=== PATIENT | female | born 1960 | race American Indian/Alaskan Native ===

== ENCOUNTER 2020-08-11 20:46 | Emergency (ER) | payer MEDICAID, OTHER ==
[2020-08-11] MEDS ORDERED: Sodium Chloride 0.9% 10 ML Syringe FLUSH PRN (21:02)
[2020-08-11] MEDS ORDERED: Sodium Chloride 0.9% 2.5 ML Syringe FLUSH PRN (21:02)
[2020-08-11] MEDS ORDERED: Aspirin 81 MG Tab.Chew PO ONE (21:04)
--- NOTE | 2020-08-11 21:05 | EDM.PDOC ---
ED HPI GENERAL MEDICAL PROBLEM - General Stated Complaint: MEDICAL CLEARANCE Time Seen by Provider: 08/11/20 20:49 - History of Present Illness INITIAL COMMENTS - FREE TEXT/NARRATIVE: History of present illness: [] This diabetic who quit smoking less than a year ago says she was in [employer] shopping and she got exertional dyspnea and pressure in the center of her chest. It went away when she relaxed. She went out to eat but they did not get there now she comes in under police custody because she is under arrest. The patient rarely or never has any significant pressure in her chest or shortness of breath. She was exposed to someone 9 days ago who had COVID-19. The patient has a little cough no fever and chills and no dyspnea at rest. The pressure was in the center of her chest when it happened and lasted until she got to the car rested. Review of systems: As per history of present illness and below otherwise all systems reviewed and negative. Past medical history: As per history of present illness and as reviewed below otherwise no ncontributory. Surgical history: As per history of present illness and as reviewed below otherwise noncontributory. Social history: No reported history of drug or alcohol abuse. Family history: As per history of present illness and as reviewed below otherwise noncontributory. Physical exam: Constitutional -obese-BMI 33.3 - well developed, well-nourished and in no acute distress HEENT - normocephalic, no evidence of trauma - external nose and mouth normal - no mass in neck and no JVD - mucosae moist EYES - full EOM, PERRL, no icterus - no evidence of inflammation, injection, or drainage Respiratory - no respiratory distress, equal bilateral expansion, lungs clear to auscultation and no abnormal lung sounds Cardiovascular - Regular Rhythm with S1 and S2 appreciated and no murmur, gallop or rub. GI - abdomen soft without distension or organomegaly - normal bowel sounds - no guard or rebound Musculoskeletal no gross deformity of long bones or joints - no tenderness, swelling or edema Neurologic - Alert and oriented times four - CN II-XII grossly intact - motor sensory and coordination symmetrically normal Psychiatric - appropriate mood and affect with normal thought content Hematologic - No petechiae or purpura - mucosa appropriate color and sclera not pale - normal nail bed color and refill Integument - no rash or evidence of trauma - normal turgor Diagnostics: [] Therapeutics: [] Impression: [] Plan: [] Definitive disposition and diagnosis as appropriate pending reevaluation and review of above. Chest Pain Score (Numeric/FACES): 4 - Related Data Allergies Allergy/AdvReac Type Severity Reaction Status Date / Time hydrocodone Allergy Shaking Verified 08/11/20 21:06 NSAIDS (Non-Steroidal Allergy Stomach Verified 08/11/20 21:06 Anti-Inflamma Upset tramadol Allergy Nausea and Verified 08/11/20 21:06 Vomiting Home Meds: Home Meds Losartan [Cozaar] 50 mg PO DAILY 12/22/15 [History] Simvastatin [Zocor] 20 mg PO DAILY 12/22/15 [History] metFORMIN [Glucophage] 2,000 mg PO DAILY 12/22/15 [History] Insulin Detemir [Levemir] 45 units SQ DAILY 12/23/15 [History] Aspirin [[place] Aspirin EC] 81 mg PO DAILY 10/28/16 [History] Pantoprazole Sodium 40 mg PO DAILY 10/28/16 [History] Sucralfate 1 gm PO TID 10/28/16 [History] Past Medical History HEENT History: Reports: Other (See Below) Other HEENT History: wears glasses Cardiovascular History: Reports: High Cholesterol, Hypertension, Other (See Below) Respiratory History: Reports: Other (See Below) Gastrointestinal History: Reports: GERD (controlled with medication.), Hepatitis Other Gastrointestinal History: states hepatitis as a child and was treated Genitourinary History: Reports: None 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: Musculoskeletal History: Reports: None Neurological History: Reports: TIA (January 2016.) Endocrine/Metabolic History: Reports: Diabetes, Type II, Obesity/BMI 30+ Hematologic History: Reports: None - Infectious Disease History Infectious Disease History: Reports: Chicken Pox - Past Surgical History HEENT Surgical History: Reports: Oral Surgery, Other (See Below) Cardiovascular Surgical History: Reports: Other (See Below) Female Surgical History: Reports: Tubal Ligation - History Comment History Comment: etoh "rare" Social & Family History - Family History Family Medical History: No Pertinent Family History - Caffeine Use Caffeine Use: Reports: Coffee - Living Situation & Occupation Occupation: Unemployed ED ROS GENERAL - Review of Systems Review Of Systems: Comprehensive ROS is negative, except as noted in HPI. ED EXAM, GENERAL - Physical Exam Exam: See Below Free Text/Narrative:: My physical exam is in the HPI #1 Interpretation EKG Interpretation Comments: KG done at 9:18 PM 11 August 2020 and interpreted at 9:22 PM. Normal sinus rhythm heart rate 66 and axis of -14. WI interval 170 QT duration 432. Normal QRS ST and T. Compared to 10/18/2016 no change impression normal EKG Course - Vital Signs Last Recorded V/S: Last Vital Signs Temp 36.7 C 08/11/20 21:01 Pulse 70 08/11/20 21:01 Resp 20 08/11/20 21:01 BP 154/59 H 08/11/20 21:01 Pulse Ox 98 08/11/20 21:01 - Orders/Labs/Meds Orders: Active Orders 24 hr Category Date Time Status EKG Documentation Completion [RC] AM Care 08/11/20 21:02 Active CORONAVIRUS COVID-19 PCR PHL Stat Lab 08/11/20 21:33 Received Labs: Laboratory Tests 08/11/20 08/11/20 08/11/20 Range/Units 21:33 21:54 21:54 WBC 10.13 (4.0-11.0) K/uL RBC 3.29 L (4.30-5.90) M/uL Hgb 9.8 L (12.0-16.0) g/dL Hct 30.3 L (36.0-46.0) % MCV 92.1 (80.0-98.0) fL MCH 29.8 (27.0-32.0) pg MCHC 32.3 (31.0-37.0) g/dL RDW Std Deviation 42.0 (28.0-62.0) fl RDW Coeff of Tatiana 12 (11.0-15.0) % Plt Count 302 (150-400) K/uL MPV 10.70 (7.40-12.00) fL Neut % (Auto) 67.6 (48.0-80.0) % Lymph % (Auto) 25.7 (16.0-40.0) % [place] % (Auto) 5.1 (0.0-15.0) % Eos % (Auto) 1.2 (0.0-7.0) % Baso % (Auto) 0.4 (0.0-1.5) % Neut # (Auto) 6.9 H (1.4-5.7) K/uL Lymph # (Auto) 2.6 H (0.6-2.4) K/uL [place] # (Auto) 0.5 (0.0-0.8) K/uL Eos # (Auto) 0.1 (0.0-0.7) K/uL Baso # (Auto) 0.0 (0.0-0.1) K/uL Nucleated RBC % 0.0 /100WBC Nucleated RBCs # 0 K/uL Sodium 141 (136-145) mmol/L Potassium 5.7 H (3.5-5.1) mmol/L Chloride 107 (98-107) mmol/L Carbon Dioxide 21.4 (21.0-32.0) mmol/L BUN 27 H (7.0-18.0) mg/dL Creatinine 1.8 H (0.6-1.0) mg/dL Est Cr Clr Drug Dosing 30.28 mL/min Estimated GFR (MDRD) 28.8 ml/min Glucose 194 H (74-106) mg/dL Calcium 9.0 (8.5-10.1) mg/dL Total Bilirubin 0.4 (0.2-1.0) mg/dL AST 11 L (15-37) IU/L ALT 14 (14-63) IU/L Alkaline Phosphatase 160 H (46-116) U/L Troponin I < 0.050 (0.000-0.056) ng/mL Total Protein 7.9 (6.4-8.2) g/dL Albumin 3.3 L (3.4-5.0) g/dL Globulin 4.6 H (2.6-4.0) g/dL Albumin/Globulin Ratio 0.7 L (0.9-1.6) SARS CoV-2 RNA Rapid JOHN NEGATIVE (NEGATIVE) 08/11/20 Range/Units 22:48 WBC (4.0-11.0) K/uL RBC (4.30-5.90) M/uL Hgb (12.0-16.0) g/dL Hct (36.0-46.0) % MCV (80.0-98.0) fL MCH (27.0-32.0) pg MCHC (31.0-37.0) g/dL RDW Std Deviation (28.0-62.0) fl RDW Coeff of Tatiana (11.0-15.0) % Plt Count (150-400) K/uL MPV (7.40-12.00) fL Neut % (Auto) (48.0-80.0) % Lymph % (Auto) (16.0-40.0) % [place] % (Auto) (0.0-15.0) % Eos % (Auto) (0.0-7.0) % Baso % (Auto) (0.0-1.5) % Neut # (Auto) (1.4-5.7) K/uL Lymph # (Auto) (0.6-2.4) K/uL Living[place] # (Auto) (0.0-0.8) K/uL Eos # (Auto) (0.0-0.7) K/uL Baso # (Auto) (0.0-0.1) K/uL Nucleated RBC % /100WBC Nucleated RBCs # K/uL Sodium (136-145) mmol/L Potassium (3.5-5.1) mmol/L Chloride (98-107) mmol/L Carbon Dioxide (21.0-32.0) mmol/L BUN (7.0-18.0) mg/dL Creatinine (0.6-1.0) mg/dL Est Cr Clr Drug Dosing mL/min Estimated GFR (MDRD) ml/min Glucose (74-106) mg/dL Calcium (8.5-10.1) mg/dL Total Bilirubin (0.2-1.0) mg/dL AST (15-37) IU/L ALT (14-63) IU/L Alkaline Phosphatase (46-116) U/L Troponin I < 0.050 (0.000-0.056) ng/mL Total Protein (6.4-8.2) g/dL Albumin (3.4-5.0) g/dL Globulin (2.6-4.0) g/dL Albumin/Globulin Ratio (0.9-1.6) SARS CoV-2 RNA Rapid JOHN (NEGATIVE) Meds: Medications Discontinued Medications Generic Name Dose Route Start Last Admin Trade Name Freq PRN Reason Stop Dose Admin Aspirin 324 mg 08/11/20 21:04 08/11/20 21:52 Aspirin PO 08/11/20 21:05 324 mg ONETIME ONE Administration Sodium Chloride 10 ml 08/11/20 21:02 Saline Flush FLUSH ASDIRECTED PRN Keep Vein Open Sodium Chloride 2.5 ml 08/11/20 21:02 Saline Flush FLUSH ASDIRECTED PRN Keep Vein Open Departure - Departure Time of Disposition: 23:29 Disposition: Home, Self-Care 01 Condition: Good Clinical Impression: Atypical chest pain, Elevated serum creatinine, Hyperkalemia, Anemia - Discharge Information Instructions: Hyperkalemia, [id number], Nonspecific Chest Pain, Adult, [id number] [facility] - Additional Instructions: Your blood count, potassium level, and creatinine tests suggest that you might have acute kidney injury. You must stop taking Aleve or Advil or products that might affect your kidney. Before you buy any combination product check with the pharmacist to make sure it is not going to damage her kidneys. It is imperative that you have primary care follow-up within a week or 2 and have your lab tests repeated. [facility] - Primary Care [address] [place] [address] [place] [address] The following information is given to patients seen in the emergency department who are being discharged to home. This information is to outline your options for follow-up care. We provide all patients seen in our emergency department with a follow-up referral. The need for follow-up, as well as the timing and circumstances, are variable depending upon the specifics of your emergency department visit. If you don't have a primary care physician on staff, we will provide you with a referral. We always advise you to contact your personal physician following an emergency department visit to inform them of the circumstance of the visit and for follow-up with them and/or the need for any referrals to a consulting specialist. The emergency department will also refer you to a specialist when appropriate. This referral assures that you have the opportunity for follow-up care with a specialist. All of these measure are taken in an effort to provide you with optimal care, which includes your follow-up. Under all circumstances we always encourage you to contact your private physician who remains a resource for coordinating your care. When calling for follow-up care, please make the office aware that this follow-up is from your recent emergency room visit. If for any reason you are refused follow-up, please contact the [facility] Emergency Department at and asked to speak to the emergency department charge nurse. Sepsis Event Note (ED) - Focused Exam Vital Signs: Vital Signs Temp Pulse Resp BP Pulse Ox 08/11/20 21:01 36.7 C 70 20 154/59 H 98 - My Orders Last 24 Hours: My Active Orders 08/11/20 21:02 EKG Documentation Completion [RC] AM 08/11/20 21:33 CORONAVIRUS COVID-19 PCR PHL Stat - Assessment/Plan Last 24 Hours: My Active Orders 08/11/20 21:02 EKG Documentation Completion [RC] AM 08/11/20 21:33 CORONAVIRUS COVID-19 PCR PHL Stat
--- NOTE | 2020-08-11 22:17 | CR ---
INDICATION: Short of breath TECHNIQUE: Portable upright AP view of the chest COMPARISON: PA and lateral chest radiographs 10/18/2016 FINDINGS: The lungs are clear. There is no sizable pleural effusion or pneumothorax. The cardiomediastinal silhouette is normal. The visualized osseous structures are unremarkable. IMPRESSION: No acute intrathoracic process. Dictated by Sowmya Guillen MD @ Aug 11 2020 10:14PM Signed by Dr. Sowmya Guillen @ Aug 11 2020 10:15PM
[2020-08-11 22:26] LABS: CARBON DIOXIDE,CO2 21.4 mmol/L (21.0-32.0); CHLORIDE,CL 107 mmol/L (98-107); GLUCOSE RANDOM 194 mg/dL (74-106); POTASSIUM,K 5.7 mmol/L (3.5-5.1); SODIUM,NA 141 mmol/L (136-145)
[2020-08-11 22:34] LABS: BLOOD UREA NITROGEN,BUN 27 mg/dL (7.0-18.0)
[2020-08-11 23:52] VITALS: BP 147/63; PULSE 58
== END 2020-08-11 22:38 | disposition home or self-care (01) ==
LOC: MW.ED 20:46
DX: E87.5 Hyperkalemia (principal); D64.9 Anemia, unspecified; R79.89 Other specified abnormal findings of blood chemistry; E78.00 Pure hypercholesterolemia, unspecified; I10 Essential (primary) hypertension; K21.9 Gastro-esophageal reflux disease without esophagitis; E11.9 Type 2 diabetes mellitus without complications; Z79.82 Long term (current) use of aspirin; Z79.4 Long term (current) use of insulin; E66.9 Obesity, unspecified; Z68.33 Body mass index [BMI] 33.0-33.9, adult; Z88.5 Allergy status to narcotic agent; Z88.8 Allergy status to other drugs, medicaments and biological substances; Z86.73 Personal history of transient ischemic attack (TIA), and cerebral infarction without residual deficits; Z20.828 Contact with and (suspected) exposure to other viral communicable diseases
CPT/HCPCS: 36415; 71045; 80053; 84484; 85025; 87635; 93005; 99285; A9270; 93010; 99283; U0002